=== PATIENT | male | born 1970 | race Caucasian/White ===

== ENCOUNTER 2020-01-27 21:52 | Emergency (ER) | payer BC ==
[~2020-01-27] VITALS: Ht 172.7 cm; Wt 72.6 kg
--- NOTE | 2020-01-27 22:05 | NUR ---
ED Nurse Note: Pt walked in to ED c/o bilateral eye irritation x2hrs ago after putting "puremoist with hydragel" eyedrops on his eyes. Noted with redness, reports blurry vision on right eye. Stated that he washed his eyes 10x but no relief. ambulates with steady gait. ao4. nad. vitals stable. visual acuity completed at triage.
[2020-01-27 22:06] VITALS: BP 143/77
--- NOTE | 2020-01-27 22:10 | NUR ---
ED Nurse Note: Eye irrigation initiated per ermd. patient tolerating well.
[2020-01-27] MEDS ORDERED: Tetracaine 0.5% Opth 4ml Soln LEFT EYE ONE (22:15)
--- NOTE | 2020-01-27 23:09 | Emergency Room Report ---
History of Present Illness General Chief Complaint: Eye Problems Source: Patient Present Illness HPI 49-year-old otherwise female here with bilateral eye pain and tearing and erythema after touching his eyes with his fingers after he had been handling a contact solution. Patient says that his boyfriend had some eye irritation after using a contact lens solution from a newly opened bottle of "pure moist with hydragel" contact 1 solution. The patient then was handling the solution and touched his eyes and then almost immediately began having severe tearing and pain in his bilateral eyes. Says that he washed his eyes out many times in his kitchen sink without much relief. Denies foreign body sensation. Denies any foreign bodies getting into the eyes. No headaches, vision changes, fevers , chills, nausea, vomiting. 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 No discharge. Extraocular movements intact. Fluorescein stain negative ENT: hearing grossly normal, normal pharynx, no angioedema, normal voice Neck: full range of motion, supple/symm/no masses Respiratory: chest non-tender, lungs clear, normal breath sounds, speaking full sentences Cardiovascular #1: regular rate, rhythm, no edema Cardiovascular #2: 2+ carotid (R), 2+ carotid (L), 2+ radial (R), 2+ radial (L) , 2+ dorsalis pedis (R), 2+ dorsalis pedis (L) Gastrointestinal: normal bowel sounds, non tender, soft, non-distended, no guarding, no rebound Rectal: deferred Genitourinary: normal inspection, no CVA tenderness Musculoskeletal: back normal, normal range of motion, calf tenderness, gait/ station normal, non-tender Neurologic: alert, motor strength/tone normal, sensory intact, responsive, speech normal Psychiatric: judgement/insight normal, memory normal, mood/affect normal, no suicidal/homicidal ideation Lymphatic: no adenopathy Medical Decision Making Diagnostic Impression: Primary Impression: Chemical exposure of eye ER Course 49-year-old male here with eye pain, erythema, tearing after chemical exposure to a contact lens cleaning solution. Patient was hemodynamic stable and neurovascular intact emergency department. He had no headache. Extraocular movements were intact. Pupils were equal, round, reactive bilaterally. He had a Abilio lens placed in the bilateral eyes which were washed out with 2 L of IV normal saline with good resolution of his pain. Fluorescein stain was negative for any corneal abrasion. No evidence of acute angle-closure glaucoma. Patient said that his symptoms were completely resolved. pH of the bilateral eyes was 7 after washout. He was given a prescription for artificial tears and discharged in stable condition. Last Vital Signs Date Time Temp Pulse Resp B/P (MAP) Pulse Ox O2 Delivery O2 Flow Rate FiO2 01/27/20 22:06 97.3 73 19 143/77 94 Room Air Scripts Dextran 70/Hypromellose (ARTIFICIAL TEARS EYE DROPS*) 15 Ml Drops 1 DROP BOTH EYES TID PRN for For Pain, #15 ML 0 Refills Prov: Selwyn Olson M.D. 01/28/20 Referrals: NON PHYSICIAN (PCP) Selwyn Olson M.D. Jan 27, 2020 23:09
--- NOTE | 2020-01-27 23:42 | NUR ---
ED Nurse Note: continued eye irrigation per ermd; patient tolerating well.
[2020-01-28] MEDS ORDERED: ARTIFICIAL TEAR15 ML BOTH EYES (00:34)
[2020-01-28 00:38] VITALS: BP 132/69
--- NOTE | 2020-01-28 00:38 | NUR ---
ER DISCHARGE NOTE: Patient is cleared to be discharged per ERMD, pt is aox4, on room air, with stable vital signs. pt was given dc and prescription instructions, pt was able to verbalize understanding, pt id band removed. pt is able to ambulate with steady gait. pt took all belongings.
== END 2020-01-28 00:38 | disposition home or self-care (01) ==
LOC: EMR 22:20
DX: Z77.098 Contact with and (suspected) exposure to other hazardous, chiefly nonmedicinal, chemicals (principal); Z88.5 Allergy status to narcotic agent; Z88.8 Allergy status to other drugs, medicaments and biological substances
CPT/HCPCS: 99283